=== PATIENT | female | born 1965 | race Caucasian/White ===

== ENCOUNTER 2016-12-03 02:07 | Emergency (ER) | payer BC ==
[2016-12-03] MEDS ORDERED: HYDROmorphone 1 MG/ML Syringe IVPUSH ONE (02:09)
[2016-12-03] MEDS ORDERED: Sodium Chloride 0.9% 1,000 ML IV ONE (02:10)
[2016-12-03] MEDS ORDERED: Ondansetron 4 MG/2 ML SDV IV ONE (02:10)
[2016-12-03 02:15] VITALS: BP 176/116
--- NOTE | 2016-12-03 02:34 | EDM.PDOC ---
ED HPI GI/ABDOMINAL - General Chief Complaint: Abdominal Pain Stated Complaint: GALBLADDER ATTACK Time Seen by Provider: 12/03/16 02:22 Source of Information: Reports: Patient History Limitations: Reports: No limitations - History of Present Illness INITIAL COMMENTS - FREE TEXT/NARRATIVE: On admission to ED c/o severe GB attack, hx of gall stones and sludge. Nauseated, no emesis at home. Pain started RUQ at 10pm, slight improvement for few inutes after bowel movement then increased , radiating to back. Ate steak and pasta with olive oil for supper. Hx similar episode in July. GB US down in [place] one stone and sludge. Scant emesis in ED partially digested food with resolution of pain. - Related Data Allergies/ADRs: Allergies Allergy/AdvReac Type Severity Reaction Status Date / Time Penicillins Allergy Unknown Rash Verified 12/03/16 02:15 clarithromycin AdvReac Unknown nausea/vomi Verified 12/03/16 02:15 ting Home Meds: Home Meds . [No Known Home Meds] 12/03/16 [History] Past Medical History Gastrointestinal History: Reports: Cholelithiasis Oncologic (Cancer) History: Reports: Other (see below) Other Oncologic History: nasal pharnax - Past Surgical History Female Surgical History: Reports: section Social & Family History - Tobacco Use Smoking Status *Q: Never Smoker Second Hand Smoke Exposure: No - Recreational Drug Use Recreational Drug Use: No ED ROS GENERAL - Review of Systems Review Of Systems: See Below Constitutional: Reports: no symptoms HEENT: Reports: No symptoms Respiratory: Reports: No Symptoms Cardiovascular: Reports: No symptoms GI/Abdominal: Reports: Abdominal pain (RUQ radiating to back, shrp stabbing), Nausea. Denies: Diarrhea, Stool incontinence, Vomiting Musculoskeletal: Reports: no symptoms Skin: Reports: no symptoms ED EXAM, GI/ABD - Physical Exam Exam: See Below Exam Limited By: No limitations General Appearance: alert, no apparent distress Ears: normal external exam, hearing loss Nose: normal inspection Throat/Mouth: Normal inspection, Normal lips, Normal teeth, Normal voice Head: atraumatic, normocephalic Neck: normal inspection Respiratory/Chest: no respiratory distress, lungs clear, normal breath sounds Cardiovascular: normal peripheral pulses, regular rate, rhythm GI/Abdominal: normal bowel sounds, soft, Estes's sign (mild pain with palpation RUQ 2/10. Pain free at rest) Extremities: normal inspection Neurological: alert, oriented, normal cognition Psychiatric: normal affect Skin Exam: Warm, Dry, Intact, Normal color Course - Vital Signs Last Recorded V/S: Last Vital Signs Temp Pulse 81 12/03/16 02:09 Resp 22 H 12/03/16 02:09 BP 176/116 H 12/03/16 02:09 Pulse Ox 100 12/03/16 02:09 - Orders/Labs/Meds Orders: Active Orders 24 hr Category Date Time Status AMYLASE [CHEM] Stat Lab 12/03/16 02:17 Received CBC WITH AUTO DIFF [HEME] Stat Lab 12/03/16 02:17 Received COMPREHENSIVE METABOLIC PN,CMP [CHEM] Stat Lab 12/03/16 02:17 Received LIPASE [CHEM] Stat Lab 12/03/16 02:17 Received Sodium Chloride 0.9% [Normal Saline] 1,000 ml Med 12/03/16 02:10 Active IV .BOLUS Medication Orders Sodium Chloride (Normal Saline) 1,000 mls @ 999 mls/hr IV .BOLUS ONE Stop: 12/03/16 03:10 Last Admin: 12/03/16 02:21 Dose: 999 mls/hr Meds: Medications Generic Name Dose Route Start Last Admin Trade Name Freq PRN Reason Stop Dose Admin Sodium Chloride 1,000 mls @ 999 mls/hr 12/03/16 02:10 12/03/16 02:21 Normal Saline IV 12/03/16 03:10 999 mls/hr .BOLUS ONE Administration Discontinued Medications Generic Name Dose Route Start Last Admin Trade Name Freq PRN Reason Stop Dose Admin Hydromorphone HCl 1 mg 12/03/16 02:09 Dilaudid IVPUSH 12/03/16 02:10 ONETIME ONE Ondansetron HCl 4 mg 12/03/16 02:10 12/03/16 02:21 Zofran IV 12/03/16 02:11 4 mg ONETIME ONE Administration Departure - Departure Time of Disposition: 03:07 Disposition: Home, Self-Care 01 Condition: good Clinical Impression: Abdominal pain Qualifiers: Abdominal location: right upper quadrant Qualified Code(s): R10.11 - Right upper quadrant pain Instructions: Abdominal Pain, Adult, [id number], Cholelithiasis Forms: ED Department Discharge Additional Instructions: sips liquid to start if tolerating advance diet slowly, Cloud low, fat diet Clinic follow up regarding surgical consult - My Orders Last 24 Hours: My Active Orders 12/03/16 02:10 Sodium Chloride 0.9% [Normal Saline] 1,000 ml IV .BOLUS 12/03/16 02:17 AMYLASE [CHEM] Stat CBC WITH AUTO DIFF [HEME] Stat COMPREHENSIVE METABOLIC PN,CMP [CHEM] Stat LIPASE [CHEM] Stat - Assessment/Plan Last 24 Hours: My Active Orders 12/03/16 02:10 Sodium Chloride 0.9% [Normal Saline] 1,000 ml IV .BOLUS 12/03/16 02:17 AMYLASE [CHEM] Stat CBC WITH AUTO DIFF [HEME] Stat COMPREHENSIVE METABOLIC PN,CMP [CHEM] Stat LIPASE [CHEM] Stat
[2016-12-03 03:04] LABS: CHLORIDE,CL 104 mmol/L (101-111); SODIUM,NA 138 mmol/L (135-145)
== END 2016-12-03 03:18 | disposition home or self-care (01) ==
LOC: DL.ED 02:07
DX: R10.11 Right upper quadrant pain (principal); Z88.0 Allergy status to penicillin; Z88.1 Allergy status to other antibiotic agents
CPT/HCPCS: 36415; 80053; 82150; 83690; 85025; 96361; 96374; 99284; J2405; J7030

== ENCOUNTER 2019-11-23 13:31 | Emergency (ER) | payer BC ==
[2019-11-23] MEDS ORDERED: GI Cocktail Oral Solution 30 ML PO ONE (13:58)
[2019-11-23] MEDS ORDERED: Sodium Chloride 0.9% 10 ML Syringe FLUSH PRN (13:58)
--- NOTE | 2019-11-23 13:58 | EDM.PDOC ---
ED HPI GENERAL MEDICAL PROBLEM - General Chief Complaint: Abdominal Pain Stated Complaint: GALLBLADDER ATTACK Time Seen by Provider: 11/23/19 13:49 Source of Information: Reports: Patient History Limitations: Reports: No Limitations - History of Present Illness INITIAL COMMENTS - FREE TEXT/NARRATIVE: Patient comes emergency department today with complaints of a gallbladder attack. This patient has had similar right upper quadrant pain intermittently over the past 3 to 4 years. She did have an ultrasound at one time the told her she had sludge and stones but did not need her ultrasound emergently at that time but has not seen a surgeon since. Typically she has this pain in the epigastric right upper quadrant region she is able to take some Prevacid and the pain goes away. Today the pain started at 10:00 she took her Prevacid without resolution of the pain and it continues in the right upper quadrant. Pain radiates into her back. She has no nausea or vomiting. No diarrhea. No other pain in her abdomen. No fever no chills. No hematuria dysuria or urinary frequency. No chest pain no shortness of breath or difficulty breathing. No palpitations weakness dizziness lightheadedness - Related Data Allergies Allergy/AdvReac Type Severity Reaction Status Date / Time Penicillins Allergy Unknown Rash Verified 11/23/19 13:41 clarithromycin AdvReac Unknown nausea/vomi Verified 11/23/19 13:41 ting Home Meds: Home Meds . [No Known Home Meds] 12/03/16 [History] Past Medical History Gastrointestinal History: Reports: Cholelithiasis Oncologic (Cancer) History: Reports: Other (See Below) Other Oncologic History: nasal pharnax - Past Surgical History Female Surgical History: Reports: Section ED ROS GENERAL - Review of Systems Review Of Systems: Comprehensive ROS is negative, except as noted in HPI. ED EXAM, GI/ABD - Physical Exam Exam: See Below Exam Limited By: No Limitations General Appearance: Alert, WD/WN, No Apparent Distress Eyes: Bilateral: EOMI Ears: Normal External Exam, Normal Canal Nose: Normal Inspection, Nasal Swelling Throat/Mouth: Normal Inspection, Normal Oropharynx Head: Atraumatic, Normocephalic Neck: Normal Inspection, Supple, Non-Tender Respiratory/Chest: No Respiratory Distress, Lungs Clear, Normal Breath Sounds, No Accessory Muscle Use, Chest Non-Tender Cardiovascular: Normal Peripheral Pulses, Regular Rate, Rhythm GI/Abdominal Exam: Normal Bowel Sounds, Soft, Guarding, Tender (Tenderness to the right upper quadrant not in the epigastric region. There is guarding to the right upper quadrant without rebound tenderness.). No: Distended, Rigid, Rebound, Hernia, Mass, Hepatomegaly (Female) Exam: Deferred Rectal (Female) Exam: Deferred Back Exam: Normal Inspection, Full Range of Motion. No: CVA Tenderness (L), CVA Tenderness (R) Extremities: Normal Inspection, Normal Range of Motion, Non-Tender, Normal Capillary Refill Neurological: Alert, Oriented, Normal Cognition, No Motor/Sensory Deficits Psychiatric: Normal Affect, Normal Mood Skin Exam: Warm, Dry, Intact, Normal Color, No Rash Course - Vital Signs Last Recorded V/S: Last Vital Signs Temp 35.5 C L 11/23/19 13:33 Pulse 102 H 11/23/19 13:33 Resp 18 11/23/19 13:33 BP 161/84 H 11/23/19 13:33 Pulse Ox 99 11/23/19 13:33 - Orders/Labs/Meds Orders: Active Orders 24 hr Category Date Time Status Peripheral IV Care [RC] . DIRECTED Care 11/23/19 13:59 Active Gallbladder [Abdomen Ltd] [US] Urgent Exams 11/23/19 14:51 Taken CULTURE URINE [RM] Stat Lab 11/23/19 14:34 Received Lactated Ringers [Ringers, Lactated] 1,000 ml Med 11/23/19 15:30 Active IV .BOLUS Sodium Chloride 0.9% [Saline Flush] Med 11/23/19 13:58 Active 10 ml FLUSH ASDIRECTED PRN metroNIDAZOLE/Normal Saline [Flagyl 500 MG in NS 100 ML Med 11/23/19 16:09 Active ] 500 mg Premix Bag 100 bag IV ONETIME Peripheral IV Insertion Adult [OM.PC] Stat Oth 11/23/19 13:58 Ordered Medication Orders Lactated Ringer's (Ringers, Lactated) 1,000 mls @ 1,000 mls/hr IV .BOLUS ONE Stop: 11/23/19 16:29 Last Admin: 11/23/19 15:43 Dose: 1,000 mls/hr Metronidazole 500 mg/ Premix 100 mls @ 100 mls/hr IV ONETIME ONE Stop: 11/23/19 17:08 Last Admin: 11/23/19 16:20 Dose: 100 mls/hr Sodium Chloride (Saline Flush) 10 ml FLUSH ASDIRECTED PRN PRN Reason: Keep Vein Open Last Admin: 11/23/19 14:08 Dose: 10 ml Labs: Laboratory Tests 11/23/19 11/23/19 11/23/19 Range/Units 13:50 13:50 14:34 WBC 11.0 H (5.0-10.0) 10^3/uL RBC 5.23 (4.2-5.4) 10^6/uL Hgb 15.1 (12.0-16.0) g/dL Hct 42.6 (37.0-47.0) % MCV 81.5 D (80-100) fL MCH 28.9 (27.0-34.0) pg MCHC 35.4 H (33.0-35.0) g/dL Plt Count 317 (150-450) 10^3/uL Neut % (Auto) 40.9 L (42.2-75.2) % Lymph % (Auto) 51.5 H (20.5-50.1) % [place] % (Auto) 4.9 (2-8) % Eos % (Auto) 2.1 (1.0-3.0) % Baso % (Auto) 0.6 (0.0-1.0) % Sodium 139 (136-145) mmol/L Potassium 3.3 L (3.5-5.1) mmol/L Chloride 101 (98-107) mmol/L Carbon Dioxide 26 (21-32) mmol/L Anion Gap 15.3 H (7-13) mEq/L BUN 14 (7-18) mg/dL Creatinine 0.90 (0.55-1.02) mg/dL Est Cr Clr Drug Dosing 52.52 mL/min Estimated GFR (MDRD) > 60 BUN/Creatinine Ratio 15.6 (No establ ref range) Glucose 124 H (74-99) mg/dL Calcium 9.7 (8.5-10.1) mg/dL Total Bilirubin 0.7 (0.2-1.0) mg/dL AST 68 H (15-37) U/L ALT 90 H (14-59) U/L Alkaline Phosphatase 68 (46-116) U/L C-Reactive Protein 0.6 (0.0-0.9) mg/dL Total Protein 7.8 (6.4-8.2) g/dL Albumin 4.5 (3.4-5.0) g/dL Globulin 3.3 Albumin/Globulin Ratio 1.4 Lipase 100 (73-393) U/L Urine Color Yellow (YELLOW) Urine Appearance Slightly cloudy (CLEAR) Urine pH 5.5 (5.0-9.0) Ur Specific [place] >= 1.030 (1.005-1.030) Urine Protein Negative (NEGATIVE) Urine Glucose (UA) Negative (NEGATIVE) Urine Ketones Negative (NEGATIVE) Urine Occult Blood Negative (NEGATIVE) Urine Nitrite Negative (NEGATIVE) Urine Bilirubin Negative (NEGATIVE) Urine Urobilinogen 0.2 (0.2-1.0) mg/dL Ur Leukocyte Esterase Trace H (NEGATIVE) Urine RBC 0-5 /HPF Urine WBC 5-10 H (0-5/HPF) /HPF Ur Epithelial Cells Few (NOT SEEN) /HPF Amorphous Sediment Few (NOT SEEN) /HPF Urine Bacteria Few (0-FEW/HPF) /HPF Urine Mucus Moderate H (NOT SEEN) /LPF Meds: Medications Generic Name Dose Route Start Last Admin Trade Name Freq PRN Reason Stop Dose Admin Lactated Ringer's 1,000 mls @ 1,000 mls/hr 11/23/19 15:30 11/23/19 15:43 Ringers, Lactated IV 11/23/19 16:29 1,000 mls/hr .BOLUS ONE Administration Metronidazole 500 mg/ Premix 100 mls @ 100 mls/hr 11/23/19 16:09 11/23/19 16: 20 IV 11/23/19 17:08 100 mls/hr ONETIME ONE Administration Sodium Chloride 10 ml 11/23/19 13:58 11/23/19 14:08 Saline Flush FLUSH 10 ml ASDIRECTED PRN Administration Keep Vein Open Discontinued Medications Generic Name Dose Route Start Last Admin Trade Name Freq PRN Reason Stop Dose Admin Al Hydroxide/Mg Hydroxide 30 ml 11/23/19 13:58 11/23/19 14:07 Gi Cocktail PO 11/23/19 13:59 30 ml ONETIME ONE Administration Diphenhydramine HCl 25 mg 11/23/19 16:06 Benadryl IVPUSH 11/23/19 16:07 ONETIME ONE Fentanyl 75 mcg 11/23/19 16:06 Sublimaze IVPUSH 11/23/19 16:07 ONETIME ONE Hydromorphone HCl 0.5 mg 11/23/19 14:32 11/23/19 14:49 Dilaudid IVPUSH 11/23/19 14:33 0.5 mg ONETIME ONE Administration Ceftriaxone Sodium 1 gm/ 50 mls @ 100 mls/hr 11/23/19 15:30 11/23/19 15:45 Sodium Chloride IV 11/23/19 15:59 100 mls/hr ONETIME ONE Administration Ondansetron HCl 4 mg 11/23/19 14:32 11/23/19 14:44 Zofran IVPUSH 11/23/19 14:33 4 mg ONETIME ONE Administration - Radiology Interpretation Free Text/Narrative:: ultrasound concerning for acute cholecystitis. Large stone in the body of the gallbladder. Pericystic fluid thin estes NOrmal CBD. - Re-Assessments/Exams Free Text/Narrative Re-Assessment/Exam: 11/23/19 14:33 GI Cocktail without any change in symptoms Dilaudid and Zofran IV pUsh. labs pending. 11/23/19 16:25 Also ? UTI ceftriaxone urine culture pending. US concerning for acute cholecystitis. I called and spoke with Dr. Parker the surgeon combination machine tender at [facility] in [place]. HPI ER COURSE findings and concerns were relayed to her. She accepted the patient in transfer at this time to the ED for possible surgery tonight. The patient is comfortable with this plan and her questions answered. Departure - Departure Time of Disposition: 16:15 Disposition: DC/Tfer to Acute Hospital 02 Clinical Impression: Acute cholecystitis, UTI (urinary tract infection) - Discharge Information Forms: ED Department Discharge Sepsis Event Note - Focused Exam Vital Signs: Vital Signs Temp Pulse Resp BP Pulse Ox 11/23/19 13:33 35.5 C L 102 H 18 161/84 H 99 Date Exam was Performed: 11/23/19 Time Exam was Performed: 16:24 - My Orders Last 24 Hours: My Active Orders 11/23/19 13:58 Sodium Chloride 0.9% [Saline Flush] 10 ml FLUSH ASDIRECTED PRN Peripheral IV Insertion Adult [OM.PC] Stat 11/23/19 13:59 Peripheral IV Care [RC] . DIRECTED 11/23/19 14:34 CULTURE URINE [RM] Stat 11/23/19 14:51 Gallbladder [Abdomen Ltd] [US] Urgent 11/23/19 15:30 Lactated Ringers [Ringers, Lactated] 1,000 ml IV .BOLUS 11/23/19 16:09 metroNIDAZOLE/Normal Saline [Flagyl 500 MG in NS 100 ML] 500 mg Premix Bag 100 bag IV ONETIME - Assessment/Plan Last 24 Hours: My Active Orders 11/23/19 13:58 Sodium Chloride 0.9% [Saline Flush] 10 ml FLUSH ASDIRECTED PRN Peripheral IV Insertion Adult [OM.PC] Stat 11/23/19 13:59 Peripheral IV Care [RC] . DIRECTED 11/23/19 14:34 CULTURE URINE [RM] Stat 11/23/19 14:51 Gallbladder [Abdomen Ltd] [US] Urgent 11/23/19 15:30 Lactated Ringers [Ringers, Lactated] 1,000 ml IV .BOLUS 11/23/19 16:09 metroNIDAZOLE/Normal Saline [Flagyl 500 MG in NS 100 ML] 500 mg Premix Bag 100 bag IV ONETIME Assessment:: Acute Cholecystitis UTI Plan: Transfer to [facility] to the ED to be seen by General Surgery in the ED.
[2019-11-23 14:00] VITALS: BP 161/84; PULSE 102
[2019-11-23 14:19] LABS: ANION GAP 15.3 mEq/L (7-13); CHLORIDE,CL 101 mmol/L (98-107); SODIUM,NA 139 mmol/L (136-145)
[2019-11-23] MEDS ORDERED: HYDROmorphone 0.5 MG/0.5 ML Syringe IVPUSH ONE (14:32)
[2019-11-23] MEDS ORDERED: Ondansetron 4 MG/2 ML SDV IVPUSH ONE (14:32)
[2019-11-23] MEDS ORDERED: cefTRIAXone 1 GM in Sodium Chloride 0.9% 50 ML IV ONE (15:30)
[2019-11-23] MEDS ORDERED: Lactated Ringers 1,000 ML IV ONE (15:30)
[2019-11-23] MEDS ORDERED: fentaNYL 100 MCG/2 ML SDV IVPUSH ONE (16:06)
[2019-11-23] MEDS ORDERED: diphenhydrAMINE 50 MG/ML SDV IVPUSH ONE (16:06)
[2019-11-23] MEDS ORDERED: metroNIDAZOLE/Normal Saline 500 MG in Premix Bag 100 BAG IV ONE (16:09)
--- NOTE | 2019-11-23 16:26 | US ---
EXAMINATION: Abdomen Ltd SEX: Female AGE: 54 years CLINICAL HISTORY: 54-year-old female with RUQ pain and elevated LFTs. INTERPRETATION: Abnormal. 1. Large dependent intraluminal echogenic "shadowing" gallstone. 2. Distended gallbladder with rim of pericystic fluid suggesting acute inflammation. Clinical? 3. No mucosal wall polyps and no abnormal dilatation of the intra or extrahepatic biliary ducts. CBD measures 5.3 mm. 4. No intrahepatic mass lesion. No ascites. 5. Normal right kidney. No renal cortical mass lesion, nephrolithiasis or obstructive uropathy (pyelocaliectasis) right kidney. CONCLUSION: Diseased gallbladder.
== END 2019-11-23 17:35 ==
LOC: DL.ED 13:31
DX: K81.0 Acute cholecystitis (principal); N39.0 Urinary tract infection, site not specified; Z88.0 Allergy status to penicillin; Z88.1 Allergy status to other antibiotic agents
CPT/HCPCS: 36415; 76705; 80053; 81001; 83690; 85025; 86140; 87086; 96365; 96367; 96375; 99285; A9270; J0696; J1170; J1200; J2405; J3010; J3490; J7050; J7120

== ENCOUNTER 2020-02-06 22:19 | Emergency (ER) | payer BC ==
[2020-02-06] MEDS ORDERED: Diphtheria,Pertussis(Acell),Tetanus Vaccine 0.5 ML SDV IM ONE (22:25)
--- NOTE | 2020-02-06 22:26 | EDM.PDOC ---
ED HPI GENERAL MEDICAL PROBLEM - General Stated Complaint: cat bit Time Seen by Provider: 02/06/20 22:26 Source of Information: Reports: Patient History Limitations: Reports: No Limitations - History of Present Illness INITIAL COMMENTS - FREE TEXT/NARRATIVE: ED ambulatory with report bit by her own cat tonight. Cat's shots current. 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 - Related Data Allergies Allergy/AdvReac Type Severity Reaction Status Date / Time Penicillins Allergy Unknown Rash Verified 02/06/20 22:41 clarithromycin AdvReac Unknown nausea/vomi Verified 02/06/20 22:41 ting Home Meds: Home Meds . [No Known Home Meds] 12/03/16 [History] Past Medical History HEENT History: Reports: Hard of Hearing, Impaired Vision Other HEENT History: Wears glasses Cardiovascular History: Reports: None Respiratory History: Reports: None Gastrointestinal History: Reports: Cholelithiasis Genitourinary History: Reports: None Musculoskeletal History: Reports: None Neurological History: Reports: None Psychiatric History: Reports: None Endocrine/Metabolic History: Reports: None Oncologic (Cancer) History: Reports: Other (See Below) Other Oncologic History: nasal pharnax Dermatologic History: Reports: None - Past Surgical History Female Surgical History: Reports: Section Social & Family History - Caffeine Use Caffeine Use: Reports: Coffee ED ROS GENERAL - Review of Systems Review Of Systems: Comprehensive ROS is negative, except as noted in HPI. ED EXAM, ANIMAL BITE - Physical Exam Exam: See Below Exam Limited By: Language Barrier General Appearance: Alert, No Apparent Distress Eye Exam: Bilateral Eye: PERRL Ears: Normal External Exam Nose: Normal Inspection Throat/Mouth: Normal Inspection, Normal Lips Neck: Normal Inspection, Full Range of Motion Respiratory/Chest: No Respiratory Distress, Lungs Clear Cardiovascular: Normal Peripheral Pulses, Regular Rate, Rhythm Extremities: Other (puncture wounds right forearm x4 superficial no active bleeding) Neurological: Alert, Oriented Skin Exam: Normal Color, Warm/Dry Course - Vital Signs Last Recorded V/S: Last Vital Signs Temp 98.6 F 02/06/20 22:35 Pulse 88 02/06/20 22:35 Resp 18 02/06/20 22:35 BP 145/88 H 02/06/20 22:35 Pulse Ox 99 02/06/20 22:35 - Orders/Labs/Meds Orders: Active Orders 24 hr Category Date Time Status Vaccines to be Administered [RC] PER UNIT ROUTINE Care 02/06/20 22:25 Active Meds: Medications Discontinued Medications Generic Name Dose Route Start Last Admin Trade Name David PRN Reason Stop Dose Admin Bacitracin 1 dose 02/06/20 22:30 02/06/20 22:47 Bacitracin Oint 1 Gm TOP 02/06/20 22:31 1 dose ONETIME ONE Administration Diphtheria/Tetanus/Acell Pertussis 0.5 ml 02/06/20 22:25 02/06/20 22:43 Adacel IM 02/06/20 22:26 0.5 ml .ONCE ONE Administration Departure - Departure Time of Disposition: 22:48 Disposition: Home, Self-Care 01 Condition: Good Clinical Impression: Cat bite involving extremity - Discharge Information *PRESCRIPTION DRUG MONITORING PROGRAM REVIEWED*: No *COPY OF PRESCRIPTION DRUG MONITORING REPORT IN PATIENT LAMBERTO: No Instructions: Animal Bite, Adult, [id number] Additional Instructions: keep wounds clean and dressed soak with warm soapy washcloth 15minutes three times daily for 5 days cover with antibiotic ointment and dressing/bandaide until healed follow up if redness increased swelling, or drainage tylenol or ibuprofen for discomfort, doxycycline 100mg twice daily for 5 days Sepsis Event Note (ED) - Focused Exam Vital Signs: Vital Signs Temp Pulse Resp BP Pulse Ox 02/06/20 22:35 98.6 F 88 18 145/88 H 99 - My Orders Last 24 Hours: My Active Orders 02/06/20 22:25 Vaccines to be Administered [RC] PER UNIT ROUTINE - Assessment/Plan Last 24 Hours: My Active Orders 02/06/20 22:25 Vaccines to be Administered [RC] PER UNIT ROUTINE
[2020-02-06] MEDS ORDERED: Bacitracin Oint 1 GM U/D Packet TOP ONE (22:30)
[2020-02-06 22:41] VITALS: BP 145/88; PULSE 88
== END 2020-02-06 22:58 | disposition home or self-care (01) ==
LOC: DL.ED 22:19
DX: S51.851A Open bite of right forearm, initial encounter (principal); Z23 Encounter for immunization; Z88.1 Allergy status to other antibiotic agents; Z88.0 Allergy status to penicillin; W55.01XA Bitten by cat, initial encounter
CPT/HCPCS: 90471; 90715; 99283

== ENCOUNTER 2020-07-27 05:45 | Day surgery (SDC) | payer BC ==
[~2020-07-27 05:45] MED LIST: Dextrose 5%-0.45% NaCl 1,000 ML IV SCH; Sodium Chloride 0.9% 10 ML Syringe FLUSH PRN
[2020-07-27] MEDS ORDERED: Midazolam 1 MG/ML 2 ML SDV IV ONE ×7 (05:46→07:33)
[2020-07-27] MEDS ORDERED: fentaNYL 100 MCG/2 ML SDV IV ONE ×3 (05:46→07:22)
[2020-07-27] MEDS ORDERED: Midazolam 1 MG/ML 2 ML SDV ONE (06:15)
[2020-07-27] MEDS ORDERED: fentaNYL 100 MCG/2 ML SDV ONE (06:15)
[2020-07-27] MEDS ORDERED: Sodium Chloride 0.9% 1,000 ML IV SCH (07:30)
--- NOTE | 2020-07-27 09:07 | OR ---
DATE: 07/27/2020 PROCEDURE: Total colonoscopy and multiple pinch biopsies. INSTRUMENT USED: [id number]-H190DL Olympus video colonoscope. PREMEDICATIONS: Fentanyl 100 mcg intravenous, Versed 4 mg intravenous. Nasal O2 cannula. The procedure was done under pulse oximetry, BP recording, and equipment monitor phototypesetting. INDICATION: The patient with persistent right-sided lower pain unexplained, not responsive to medical measures. Colonoscopic examination is done for detection of any polypoid lesions and removal, endoscopic hemostasis therapy if needed. DESCRIPTION OF PROCEDURE: Initial rectal exam was unremarkable. Rigid anoscopy was normal. The colonoscope was passed with ease up to the ileocecal area. Photographs were taken of the cecum showing less than 1 cm sized benign- appearing submucosal lesion with yellowish discoloration, consistent with lipoma, multiple pinch biopsies were taken and sent for histopathology. Similar kind of benign lesion was noted in the proximal ascending colon. No bleeding was noted from any of the visualized areas at the commencement of the examination. The bowel preparation was found to be adequate. [place] scale 2 in all the regions, total score 6. No stricture. No vascular ectasia. No large isolated ulcerations seen. No evidence of diffuse inflammatory bowel disease in the form of friability, contact bleeding, or ulcerations. Probing the proximal sides of folds and flexures using adequate distention and clearing up the stool material, withdrawal of the scope was made, cecum to rectum time over 6 minutes. No bleeding was noted from any of the visualized areas at the completion of examination. IMPRESSION: Benign submucosal lesions, cecum and ascending colon. The patient tolerated the procedure well. [facility] /[id number] DINORA
[2020-07-27 09:49] VITALS: BP 120/54; PULSE 60
== END 2020-07-27 09:53 | disposition home or self-care (01) ==
LOC: DL.ENDO 05:45
PROVIDERS: ATTEND Internal Medicine Gastroenterology
DX: K63.89 Other specified diseases of intestine (principal); I25.10 Atherosclerotic heart disease of native coronary artery without angina pectoris; H91.90 Unspecified hearing loss, unspecified ear; E78.5 Hyperlipidemia, unspecified; Z90.49 Acquired absence of other specified parts of digestive tract; Z98.890 Other specified postprocedural states; Z88.0 Allergy status to penicillin; Z88.1 Allergy status to other antibiotic agents
CPT/HCPCS: 45380; J2250; J3010; J7030; J7042

== ENCOUNTER 2021-01-17 06:23 | Day surgery (SDC) | payer BC ==
[2021-01-17] MEDS ORDERED: Midazolam 1 MG/ML 2 ML SDV IV ONE ×3 (06:24→07:29)
[2021-01-17] MEDS ORDERED: fentaNYL 100 MCG/2 ML SDV IV ONE ×3 (06:24→07:28)
[2021-01-17] MEDS ORDERED: Midazolam 1 MG/ML 2 ML SDV ONE (06:31)
[2021-01-17] MEDS ORDERED: fentaNYL 100 MCG/2 ML SDV ONE (06:32)
--- NOTE | 2021-01-17 09:08 | OR ---
DATE: 01/17/2021 PROCEDURE: Esophagogastroduodenoscopy, narrow-band imaging, multiple pinch biopsies, and brush biopsy. INSTRUMENT USED: [id number]-[id number] Olympus video panendoscope. PREMEDICATIONS: No oral or topical anesthesia used. Fentanyl 100 mcg intravenous, Versed 2 mg intravenous, and nasal O2 cannula. The procedure was done under pulse oximetry, BP recording, and monitor worker. INDICATION: The patient with persistent episodes of abdominal pain and dyspepsia, pain not responsive to medical measures. Esophagogastroduodenoscopy is performed for detection of any active erosive lesions, [place] esophagus and/or malignancy also under consideration, H pylori status to be determined, esophageal dilatations if indicated, endoscopic hemostasis therapy if needed. The scope was passed with ease. Adequate visualization of the esophagus was made from proximal to distal areas. No upper esophageal lesions identified. No distal esophageal stricture. No uphill or downhill esophageal varices. No Kaitlyn-Lo tear. No evidence of erosive esophagitis by [place] criteria. At the GE junction, 1 cm sized friable protruding fold was noted, NBI views were obtained, numerous pinch biopsies are obtained. Trenary biopsy was taken for cytology. Photographs were taken. No proximal gastric varices noted. Gastric fundus examination by retroflexion showed no lesions. No gastric ulcer, malignant mass, or vascular ectasia identified. Scattered gastric antral erosions were noted without being from them. Multiple pinch biopsies were taken from the gastric antrum and proximal body and sent for PyloriTek test for H pylori and histopathology. Duodenal bulb showed no ulcer. Visualized second part of the duodenum was unremarkable. No bleeding was noted from any of the visualized areas at the completion of examination. Photographs were taken of the duodenal bulb, gastric antrum, fundus, and distal esophagus. IMPRESSION: Gastric antral erosions. The patient tolerated the procedure well. [facility] /[id number]
[2021-01-17 09:59] VITALS: BP 106/70; PULSE 63
== END 2021-01-17 09:47 | disposition home or self-care (01) ==
LOC: DL.ENDO 06:23
PROVIDERS: ATTEND Internal Medicine Gastroenterology
DX: K25.9 Gastric ulcer, unspecified as acute or chronic, without hemorrhage or perforation (principal); R13.10 Dysphagia, unspecified; E78.5 Hyperlipidemia, unspecified; Z90.49 Acquired absence of other specified parts of digestive tract; Z88.0 Allergy status to penicillin; Z88.1 Allergy status to other antibiotic agents; Z98.890 Other specified postprocedural states
CPT/HCPCS: 87077; J2250; J3010; J7042

== ENCOUNTER 2022-12-11 21:03 | Emergency (ER) | payer BC ==
[2022-12-11 21:22] VITALS: BP 140/77; PULSE 87
== END 2022-12-11 21:56 | disposition home or self-care (01) ==
LOC: DL.ED 21:03
DX: L30.9 Dermatitis, unspecified (principal); E78.00 Pure hypercholesterolemia, unspecified; Z88.0 Allergy status to penicillin; Z88.1 Allergy status to other antibiotic agents; Z79.82 Long term (current) use of aspirin; Z79.899 Other long term (current) drug therapy
CPT/HCPCS: 99282

== ENCOUNTER 2025-04-16 20:57 | Emergency (ER) | payer BC ==
[2025-04-16 22:27] VITALS: BP 135/70; PULSE 73
== END 2025-04-16 22:27 | disposition home or self-care (01) ==
LOC: DL.ED 20:57
DX: S10.96XA Insect bite of unspecified part of neck, initial encounter (principal); E78.00 Pure hypercholesterolemia, unspecified; Z88.0 Allergy status to penicillin; Z88.1 Allergy status to other antibiotic agents; Z79.82 Long term (current) use of aspirin; Z79.899 Other long term (current) drug therapy; Z90.49 Acquired absence of other specified parts of digestive tract; W57.XXXA Bitten or stung by nonvenomous insect and other nonvenomous arthropods, initial encounter
CPT/HCPCS: 99283